=== PATIENT | male | born 1960 | race Caucasian/White ===

== ENCOUNTER → 2021-04-13 | Outpatient (CLI) | payer BC ==
[~2021-04-13] MED LIST: ALFU10TA PO; FAMO20TA7 PO; FINA5TAB4 PO; FISH400C3 PO; GABA300C PO; GLIP10TA13 PO; INSU100V13 SC; LISI-170 PO; METF10007 PO; PANT40TA6 PO; [UNRECOGNIZED DRUG - MIXTURE] PO; [UNRECOGNIZED DRUG - OTHER] PO; [UNRECOGNIZED DRUG - OTHER] PO; [UNRECOGNIZED DRUG - OTHER] PO; [UNRECOGNIZED DRUG - OTHER] PO
== END | disposition home or self-care (01) ==
LOC: STAR 08:42
PROVIDERS: ATTEND Urology
DX: Z01.818 Encounter for other preprocedural examination (principal); N40.1 Benign prostatic hyperplasia with lower urinary tract symptoms; R94.31 Abnormal electrocardiogram [ECG] [EKG]; Z20.822 Contact with and (suspected) exposure to COVID-19
CPT/HCPCS: 93005; U0003; U0005

== ENCOUNTER 2021-04-19 08:06 | Observation (INO) | payer BC ==
[~2021-04-19] VITALS: Ht 172.7 cm; Wt 73.1 kg
[2021-04-19] MEDS ORDERED: CEFTRIAXONE 2 GM in DEXTROSE 5% 50 ML IVPB ONE (08:30)
[2021-04-19] MEDS ORDERED: SODIUM CHLORIDE 0.9% 1,000 ML IV SCH (09:00)
[2021-04-19] MEDS ORDERED: CHLORHEXIDINE 15 ML UDC ONE (09:08)
[2021-04-19] MEDS ORDERED: FENTANYL PF 250 MCG/5ML ONE (09:40)
[2021-04-19] MEDS ORDERED: MIDAZOLAM 1 MG/ML, 2ML ONE (09:40)
[2021-04-19] MEDS ORDERED: ONDANSETRON 2MG/ML, 2ML IVPush PRN (10:00)
[2021-04-19] MEDS ORDERED: LABETALOL 5MG/ML, 20ML IV PRN (10:00)
[2021-04-19] MEDS ORDERED: morphine SULFATE 10 MG/ML, 1ML IVPush PRN (10:00)
[2021-04-19] MEDS ORDERED: MEPERIDINE/PF 25MG/0.5ML IVPush PRN (10:00)
[2021-04-19] MEDS ORDERED: hydrALAzine 20 MG/ML, 1ML IV PRN (10:00)
[2021-04-19] MEDS ORDERED: OXYcodone 5 MG/5 ML ORAL.SOL UDC PO PRN (10:00)
[2021-04-19] MEDS ORDERED: ACETAMINOPHEN 325 MG TABLET PO PRN (10:00)
[2021-04-19] MEDS ORDERED: HYDROmorphone 1 MG/ML, 1ML INJ IVPush PRN (10:00)
[2021-04-19] MEDS ORDERED: FENTANYL PF 100 MCG/2ML IV PRN (10:00)
[2021-04-19] MEDS ORDERED: PROPOFOL 10 MG/ML, 20ML ONE (10:52)
[2021-04-19] MEDS ORDERED: FENTANYL PF 100 MCG/2ML ONE (11:40)
[2021-04-19] MEDS ORDERED: OXYcodone/APAP 5/325MG TABLET PO PRN (12:30)
[2021-04-19] MEDS ORDERED: OPIUM/BELLADONNA SUPP.RECT 16.2-60 MG PR PRN (12:30)
[2021-04-19] MEDS ORDERED: CEFTRIAXONE 1,000 MG IM SCH (12:30)
[2021-04-19] MEDS ORDERED: ONDANSETRON 2MG/ML, 2ML IV PRN (12:30)
[2021-04-19] MEDS: LACTATED RINGERS 1,000 ML IV SCH (12:30)
[2021-04-19 13:25] VITALS: BP 107/65
[2021-04-19] MEDS: metFORMIN 500 MG TABLET PO SCH (16:43)
[2021-04-19] MEDS: PANTOPRAZOLE 40MG TABLET PO SCH (16:43)
[2021-04-19] MEDS: GABAPENTIN 300 MG CAPSULE PO SCH ×2 (16:44→22:01)
[2021-04-19 19:48] VITALS: BP 125/65
[2021-04-19] MEDS ORDERED: FAMOTIDINE 20 MG TABLET PO SCH (21:00)
[2021-04-19] MEDS: INSULIN GLARGINE 100 UNITS/ML, PEN SQ-INSULIN SCH (21:00)
[2021-04-20 00:04] VITALS: BP 119/69
[2021-04-20] MEDS: LACTATED RINGERS 1,000 ML IV SCH (01:50)
[2021-04-20 04:02] VITALS: BP 121/71
[2021-04-20 06:50] VITALS: BP 129/77
[2021-04-20] MEDS: PANTOPRAZOLE 40MG TABLET PO SCH (07:07)
[2021-04-20] MEDS: metFORMIN 500 MG TABLET PO SCH (07:58)
[2021-04-20] MEDS: GABAPENTIN 300 MG CAPSULE PO SCH (08:09)
[2021-04-20] MEDS: INSULIN GLARGINE 100 UNITS/ML, PEN SQ-INSULIN SCH (08:30)
[2021-04-20] MEDS ORDERED: ALFUZOSIN 10 MG HOMEMEDPO SCH (09:00)
[2021-04-20] MEDS ORDERED: LISINOPRIL 40 MG TABLET PO SCH (09:00)
[2021-04-20] MEDS ORDERED: MAGNESIUM OXIDE 400 MG TABLET PO SCH (09:00)
[2021-04-20] MEDS ORDERED: FINASTERIDE 5 MG TABLET PO SCH (09:00)
[2021-04-20 10:00] VITALS: BP 128/72
[2021-04-20] MEDS ORDERED: CEFTRIAXONE 2 GM in DEXTROSE 5% 50 ML IVPB SCH (10:00)
== END 2021-04-20 12:10 | disposition home or self-care (01) ==
LOC: OUT 08:06 → ORIP 12:03 → 4NE 13:22 → DCLOUNGE 04-20 12:00
PROVIDERS: ADMIT Urology; ATTEND Urology
DX: N40.1 Benign prostatic hyperplasia with lower urinary tract symptoms (principal); R33.8 Other retention of urine; E11.9 Type 2 diabetes mellitus without complications; K21.9 Gastro-esophageal reflux disease without esophagitis; I10 Essential (primary) hypertension; Z79.899 Other long term (current) drug therapy
CPT/HCPCS: 52601; 82962; 88305; 96365; G0378; J0696; J1815; J2250; J2704; J3010; J7030